=== PATIENT | male | born 1995 | race Caucasian/White ===

== ENCOUNTER 2019-02-24 06:05 | Emergency (ER) | payer OTHER ==
[2019-02-24 06:45] VITALS: BMI 25.8
--- NOTE | 2019-02-24 08:01 | PDOC ---
History of Present Illness - General Chief Complaint: Injury Stated Complaint: FALL Time Seen by Provider: 02/24/19 07:24 History Source: Patient Exam Limitations: No Limitations - History of Present Illness Initial Comments: 02/24/19 07:31 24y M no pmhx presents with R knee pain. The patient jumped onto truck a 2 weks ago and bumped his knee onto the car and there was an abrasion initially and pain. however since then he has had pain on his lower knee/prox tibia region when he takes knee, also notes when he presses on that region, he has tingling sensation on ihs lateral calf, when he touches the lateral calf, there is decreased sensation. The pt deenie any other injury or pain including back pain , hip pain. Past History - Past Medical History Allergies/Adverse Reactions: Allergies Allergy/AdvReac Type Severity Reaction Status Date / Time No Known Allergies Allergy Verified 02/24/19 06:43 - Suicide/Smoking/Psychosocial Hx Smoking History: Never smoked Have you smoked in the past 12 months: No Information on smoking cessation initiated: No Hx Alcohol Use: No Drug/Substance Use Hx: No Review of Systems - Review of Systems Able to Perform ROS?: Yes Comments:: 02/24/19 09:32 General: No fever/chills Extremity: +nmbness/pain of R knee/tibia, denies any hip pain, nkle pain, leg swelling *Physical Exam - Vital Signs Last Vital Signs Temp Pulse Resp BP Pulse Ox 98.2 F 68 19 135/90 98 02/24/19 06:05 02/24/19 06:05 02/24/19 06:05 02/24/19 06:05 02/24/19 06:05 - Physical Exam Comments: 02/24/19 09:26 GENERAL: The patient is awake, alert, and fully oriented, Nontoxic - in no acute distress. EXTREMITIES: Normal range of motion of R hip, knee, nkle., no edema. Mild ttp to R anterio rtibia, deminished sensation to lateral aspec of R calf, abrasin on R tibia. ED Treatment Course - RADIOLOGY Radiology Studies Ordered: Category Date Time Status KNEE 3 POS-RIGHT [RAD] Stat Radiology 02/24/19 07:25 Ordered LEG TIB/FIB-RIGHT [RAD] Stat Radiology 02/24/19 07:27 Ordered Medical Decision Making - Medical Decision Making 02/24/19 09:34 xrays neg suspect peroneal nerve injury based on distribution of pain wlil dc and fu with neuro *DC/Admit/Observation/Transfer Diagnosis at time of Disposition: Common peroneal nerve dysfunction Qualifiers: Encounter type: initial encounter Laterality: right Qualified Code(s): S84.11XA - Injury of peroneal nerve at lower leg level, right leg, initial encounter - Discharge Dispostion Disposition: HOME Condition at time of disposition: Improved Decision to Admit order: No - Referrals Referrals: Herlinda Hills [Primary Care Provider] - - Patient Instructions Printed Discharge Instructions: Peroneal Nerve Injury Additional Instructions: Return to the emergency department immediately with ANY new, persistent or worsening symptoms. I suspect you may have injured your peroneal nerve. Please follow up with neurology for furher evaluation. You MUST call and follow up with your doctor in 4-5 days for further evaluation of your symptoms. Results were discussed with you. Please make sure your doctor reviews the results of your emergency evaluation. Your Emergency Department visit is not complete without a follow up with your doctor. Print Language: GEORGIAN - Post Discharge Activity Forms/Work/School Notes: Back to Work
[2019-02-24 10:03] VITALS: BP 132/79; PULSE 69; TEMP 97.6
== END 2019-02-24 10:08 | disposition home or self-care (01) ==
LOC: JER 06:05
DX: S84.11XA Injury of peroneal nerve at lower leg level, right leg, initial encounter (principal); V68.4XXA Person boarding or alighting a heavy transport vehicle injured in noncollision transport accident, initial encounter; Y92.488 Other paved roadways as the place of occurrence of the external cause; Y93.89 Activity, other specified; Y99.8 Other external cause status
CPT/HCPCS: 73562-TC-RT-FY; 73590-TC-RT-FY; 99282-25

== ENCOUNTER 2020-11-26 14:30 | Emergency (ER) | payer OTHER ==
[2020-11-26 14:36] VITALS: BP 144/88; PULSE 70; TEMP 98.9; BMI 28.8
== END 2020-11-26 15:45 | disposition home or self-care (01) ==
LOC: FER 14:30
DX: S93.402A Sprain of unspecified ligament of left ankle, initial encounter (principal)
CPT/HCPCS: 73610-TC-LT-FY; 73630-TC-LT; 99283-25